=== PATIENT | male | born 1985 | race Caucasian/White ===

== ENCOUNTER 2018-11-02 09:28 | Emergency (ER) | payer OTHER, MEDICAID ==
[~2018-11-02] VITALS: Ht 190.5 cm; Wt 123.4 kg
[2018-11-02 09:47] VITALS: BP 105/45; Ht 190.5 cm; Wt 123.4 kg
== END 2018-11-02 10:21 | disposition home or self-care (01) ==
LOC: ED 09:28
DX: K08.89 Other specified disorders of teeth and supporting structures (principal)

== ENCOUNTER 2018-11-20 07:26 | Emergency (ER) | payer OTHER, MEDICAID ==
[~2018-11-20] VITALS: Ht 190.5 cm; Wt 127.5 kg
[2018-11-20 07:48] VITALS: BP 155/84; Ht 190.5 cm; Wt 127.5 kg
== END 2018-11-20 09:32 | disposition home or self-care (01) ==
LOC: ED 07:26
DX: L02.413 Cutaneous abscess of right upper limb (principal)